=== PATIENT | female | born 1985 | race African-American/Black ===

== ENCOUNTER 2017-10-03 16:47 | Emergency (ER) | payer MEDICAID, SELFPAY ==
[2017-10-03 18:46] LABS: HBSAg Index 0.16 S/CO (0-0.99); HIV (1/2) Antibody/Antigen Non-Reactive (NonReactive); HIV 1/2 INDEX 0.15 S/CO (<1.00); Hep A IgM AB Non-Reactive (NonReactive); Hep B Core Total Ab Non-Reactive (NonReactive); Hep B Core Total Index 0.07 S/CO (0-0.79); Hep B Surf Ag Non-Reactive S/CO (NonReactive); Hep C IgG Ab Non-Reactive (NonReactive); Hep C Index 0.15 S/CO (0-0.79)
[2017-10-03 19:12] LABS: HBSAB Concentration 115.91 mIU/mL; Hep B Surf AB Reactive (NonReactive)
== END 2017-10-03 19:14 | disposition short-term general hospital (02) ==
LOC: ERS 16:47
DX: T76.21XA Adult sexual abuse, suspected, initial encounter (principal)
CPT/HCPCS: 36415; 86704; 86706; 86709; 86803; 87340; 87389; 99285